=== PATIENT | male | born 1950 | race Caucasian/White ===

== ENCOUNTER 2019-03-23 08:52 | Outpatient (CLI) | payer OTHER, SELFPAY ==
[2019-03-23 10:53] LABS: Anion Gap 7.3 mmol/L (3-11); BUN 17 mg/dL (7-18); CO2 31.7 mmol/L (21.0-32.0); CREATININE 1.19 mg/dL (0.70-1.30); Calcium 9.3 mg/dL (8.5-10.1); Calculated LDL 129 mg/dL; Chloride 103 mmol/L (98-107); Cholesterol 208 mg/dL (50-200); Glucose 95 mg/dL (70-100); HDL Cholesterol 47 mg/dL (40-60); Potassium 4.1 mmol/L (3.5-5.1); Sodium 142 mmol/L (136-145); Triglyceride 163 mg/dL (30-150)
== END 2019-03-23 09:12 ==
PROVIDERS: PCP Family Medicine; Visit Provider Family Medicine
DX: I10 Essential (primary) hypertension (principal)
CPT/HCPCS: 36415; 80048; 80061; 83721

== ENCOUNTER 2019-03-24 11:56 | Outpatient (CLI) | payer OTHER, SELFPAY ==
--- NOTE | 2019-03-24 12:45 | MERGE_ITS ---
*[facility]* *[facility]* [address] [place] [address] Date of study: 03/24/2019 Transthoracic Echocardiography M-mode, complete 2D, complete spectral Doppler, and color Doppler *STUDY CONCLUSIONS* Impressions: Severe , reduced LV function. Summary: 1. Left ventricle: The cavity size was normal. Wall thickness was increased in a pattern of mild LVH. There was moderate focal basal hypertrophy. Systolic function was mildly to moderately reduced. The estimated ejection fraction was 40-45%. Severe hypokinesis of the mid-apicalanteroseptal myocardium. Severe hypokinesis of the basalinferior myocardium. 2. Aortic valve: Moderately calcified annulus. Trileaflet; severely thickened, severely calcified leaflets. Valve mobility was severely restricted. Transvalvular velocity was increased. There was severe stenosis. There was mild to moderate regurgitation. Peak velocity (S): 4.2m/sec. Mean gradient (S): 40.2mm Hg. Valve area (VTI): 0.7cm^2. Valve area (Vmax): 0.7cm^2. Valve area (Vmean): 0.7cm^2. 3. Aortic root: The aortic root was mildly dilated. 4. Ascending aorta: The ascending aorta was mildly dilated. 5. Right ventricle: The cavity size was normal. Wall thickness was normal. Systolic function was normal. 6. Pulmonary arteries: Pulmonary systolic pressure was at the upper limits of normal. PA peak pressure: 29mm Hg (S). Recommendations: Cardiothoracic Surgery Consult *PATIENT PRESENTATION* Height: 182.9cm (72in ) S/D Pressure: 142 / 92 Weight: 95.3kg (209.6lb ) BSA: 2.22m^2 Test start time: 12:45 PM. Test stop time: 01:36 PM. PERFORMING Unknown CONSULTING Domo Geronimo ORDERING Domo Geronimo REFERRING Domo Geronimo PERFORMING [facility] PATIENT EDUCATOR Koki Blackwell *PROCEDURE DATA* Procedure information: This study was interpreted by [facility]. Pertinent images and digital data are archived for permanent storage and are available for subsequent review. No prior study was available for comparison. Study status: Routine. Transthoracic echocardiography. M-mode, complete 2D, complete spectral Doppler, and color Doppler. A Transthoracic Echocardiogram was performed. Scanning was performed from the parasternal, apical, subcostal, and suprasternal notch acoustic windows. Images were obtained using an [employer] SC 2000 cardiac ultrasound machine. Image quality was fair. Study completion: The patient tolerated the procedure well. History: PMH: Murmur. *CARDIAC ANATOMY* Left ventricle: The cavity size was normal. Wall thickness was increased in a pattern of mild LVH. There was moderate focal basal hypertrophy. Systolic function was mildly to moderately reduced. The estimated ejection fraction was 40-45%. Regional wall motion abnormalities: Severe hypokinesis of the mid-apicalanteroseptal myocardium. Severe hypokinesis of the basalinferior myocardium. Aortic valve: Moderately calcified annulus. Trileaflet; severely thickened, severely calcified leaflets. Valve mobility was severely restricted. Doppler: Transvalvular velocity was increased. There was severe stenosis. There was mild to moderate regurgitation. VTI ratio of LVOT to aortic valve: 0.22. Valve area (VTI): 0.7cm^2. Indexed valve area (VTI): 0.3cm^2/m^2. Peak velocity ratio of LVOT to aortic valve: 0.19. Valve area (Vmax): 0.7cm^2. Indexed valve area (Vmax): 0.3cm^2/m^2. Mean velocity ratio of LVOT to aortic valve: 0.21. Valve area (Vmean): 0.7cm^2. Indexed valve area (Vmean): 0.3cm^2/m^2. Mean gradient (S): 40.2mm Hg. Peak gradient (S): 72.1mm Hg. Aorta: Aortic root: The aortic root was mildly dilated. Ascending aorta: The ascending aorta was mildly dilated. Mitral valve: Structurally normal valve. Mobility was not restricted. Doppler: Transvalvular velocity was within the normal range. There was no evidence for stenosis. There was no significant regurgitation. Valve area by pressure half-time: 4.3cm^2. Indexed valve area by pressure half-time: 1.9cm^2/m^2. Left atrium: The atrium was normal in size. Right ventricle: The cavity size was normal. Wall thickness was normal. Systolic function was normal. Pulmonic valve: Doppler: Transvalvular velocity was within the normal range. There was no evidence for stenosis. There was no significant regurgitation. Peak gradient (S): 4.4mm Hg. Tricuspid valve: Structurally normal valve. Doppler: Transvalvular velocity was within the normal range. There was no evidence for stenosis. There was no significant regurgitation. Pulmonary artery: Pulmonary systolic pressure was at the upper limits of normal. Right atrium: The atrium was normal in size. Pericardium: There was no pericardial effusion. Measurements Left ventricle Value Reference LV ID, ED, PLAX 5.5 cm 3.5 - 6.0 LV ID, ES, PLAX (H) 4.8 cm 2.1 - 4.0 LV PW thickness, ED, PLAX 1.3 cm LV end-diastolic volume, 1-p A2C 164 ml LV ejection fraction, 1-p A2C 40 % LV end-diastolic volume, 1-p A4C 125 ml LV ejection fraction, 1-p A4C 39 % LV e', lateral 0.044 m/sec LV E/e', lateral 10 LV e', medial 0.046 m/sec LV E/e', medial 9 LV e', average 0.045 m/sec LV E/e', average 10 Ventricular septum Value Reference IVS thickness, ED, PLAX 1.3 cm LVOT Value Reference LVOT ID, A-P 2.1 cm LVOT area 3.4 cm^2 LVOT peak velocity, S 0.82 m/sec LVOT mean velocity, S 0.62 m/sec LVOT VTI, S 21.5 cm LVOT peak gradient, S 2.7 mm Hg LVOT mean gradient, S 1.7 mm Hg Stroke volume (SV), LVOT DP 73 ml Stroke index (SV/bsa), LVOT DP 33 ml/m^2 Aortic valve Value Reference Aortic valve peak velocity, S 4.2 m/sec Aortic valve mean velocity, S 3 m/sec Aortic valve VTI, S 98.0 cm Aortic mean gradient, S 40.2 mm Hg Aortic peak gradient, S 72.1 mm Hg VTI ratio, LVOT/AV 0.22 Aortic valve area, VTI 0.7 cm^2 Velocity ratio, peak, LVOT/AV 0.19 Aortic valve area, peak velocity 0.7 cm^2 Velocity ratio, mean, LVOT/AV 0.21 Aortic valve area, mean velocity 0.7 cm^2 Aortic valve area/bsa, mean velocity 0.3 cm^2/m^2 Aortic regurg deceleration 128 cm/s^2 Aortic regurg pressure half-time 830 ms Aorta Value Reference Aortic root ID, ED 4.2 cm Ascending aorta ID, A-P, S 4.2 cm Left atrium Value Reference LA ID, A-P, ES 4.1 cm LA ID/bsa, A-P 1.9 cm/m^2 <=2.2 LA volume, ES, 2-p 60 ml LA volume/bsa, ES, 2-p 27 ml/m^2 LA/aortic root ratio 0.99 Mitral valve Value Reference Mitral E-wave peak velocity 0.44 m/sec Mitral A-wave peak velocity 0.85 m/sec Mitral deceleration time 178 ms 150 - 230 Mitral pressure half-time 52 ms Mitral E/A ratio, peak 0.51 Mitral valve area, PHT, DP 4.3 cm^2 Pulmonary arteries Value Reference PA pressure, S, DP 29 mm Hg <=30 Tricuspid valve Value Reference Tricuspid regurg peak velocity 2.4 m/sec Tricuspid peak RV-RA gradient 23.7 mm Hg Right atrium Value Reference RA area, ES, A4C (H) 21.2 cm^2 8.3 - 19.5 Systemic veins Value Reference Estimated CVP 10 mm Hg Right ventricle Value Reference RV pressure, S, DP (H) 34 mm Hg <=30 Pulmonic valve Value Reference Pulmonic peak gradient, S 4.4 mm Hg Legend: (L) and (H) nara values outside specified reference range. I have personally reviewed the images and have reviewed and edited the reported findings. Electronically signed by Le Brown 03/26/2019 13:17
== END 2019-03-24 12:16 ==
PROVIDERS: PCP Family Medicine; Visit Provider Family Medicine
DX: R01.1 Cardiac murmur, unspecified (principal); I10 Essential (primary) hypertension; I35.8 Other nonrheumatic aortic valve disorders; I35.2 Nonrheumatic aortic (valve) stenosis with insufficiency; I51.7 Cardiomegaly
CPT/HCPCS: 93306

== ENCOUNTER 2019-07-18 13:16 | Outpatient (RCR) | payer OTHER, SELFPAY | END 2019-08-05 23:59 | disposition home or self-care (01) | LOC: CR 13:16 | PROVIDERS: PCP Family Medicine; Visit Provider Family Medicine | DX: Z51.89 Encounter for other specified aftercare (principal) ==

== ENCOUNTER 2019-09-01 14:24 | Outpatient (RCR) | payer OTHER, SELFPAY | END 2019-09-05 23:59 | disposition home or self-care (01) | LOC: CR 14:24 | PROVIDERS: PCP Family Medicine; Visit Provider Family Medicine | DX: Z95.2 Presence of prosthetic heart valve (principal); Z51.89 Encounter for other specified aftercare | CPT/HCPCS: S9472 ==

== ENCOUNTER 2019-10-06 10:00 | Outpatient (RCR) | payer OTHER, SELFPAY | END 2019-10-06 23:59 | disposition home or self-care (01) | LOC: CR 10:00 | PROVIDERS: PCP Family Medicine; Visit Provider Family Medicine | DX: Z95.2 Presence of prosthetic heart valve (principal); Z51.89 Encounter for other specified aftercare | CPT/HCPCS: S9472 ==

== ENCOUNTER 2019-11-03 13:40 | Outpatient (RCR) | payer OTHER, SELFPAY | END 2019-11-04 23:59 | disposition home or self-care (01) | LOC: CR 13:40 | PROVIDERS: PCP Family Medicine; Visit Provider Family Medicine | DX: Z95.2 Presence of prosthetic heart valve (principal); Z51.89 Encounter for other specified aftercare | CPT/HCPCS: S9472 ==

== ENCOUNTER 2019-11-13 09:00 | Outpatient (RCR) | payer OTHER, SELFPAY | END 2019-12-05 23:59 | disposition home or self-care (01) | LOC: CR 09:00 | PROVIDERS: PCP Family Medicine; Visit Provider Family Medicine | DX: Z95.2 Presence of prosthetic heart valve (principal); Z51.89 Encounter for other specified aftercare | CPT/HCPCS: S9472 ==

== ENCOUNTER 2020-04-11 02:21 | Outpatient (CLI) | payer OTHER, SELFPAY ==
[2020-04-11 08:42] LABS: Anion Gap 8.6 mmol/L (3-11); BUN 31 mg/dL (7-18); CO2 30.4 mmol/L (21.0-32.0); CREATININE 1.44 mg/dL (0.70-1.30); Calcium 9.3 mg/dL (8.5-10.1); Chloride 101 mmol/L (98-107); Estimated GFR 48.93 (mL/min/1.73m2); Glucose 104 mg/dL (74-106); Sodium 140 mmol/L (136-145)
== END 2020-04-11 02:41 ==
PROVIDERS: PCP Family Medicine; Visit Provider Family Medicine
DX: I10 Essential (primary) hypertension (principal)
CPT/HCPCS: 36415; 80048

== ENCOUNTER 2020-08-11 12:59 | Emergency (ER) | payer OTHER, SELFPAY ==
[2020-08-11 13:03] VITALS: BP 149/91; PULSE 73; RESP 18; TEMP 36.1; O2SAT 98
--- NOTE | 2020-08-11 13:15 | DI.RAD_ITS ---
EXAM: XR FEMUR RT CLINICAL HISTORY: Fall, R/O fracture. TECHNIQUE: 2D digital imaging was performed. COMPARISON: No exams were available for comparison FINDINGS: Two views of the right femur reveal no evidence of acute fracture nor dislocation. No radiopaque for eign body. No osseous lesions. Bone density normal. No obvious knee joint effusion. IMPRESSION: No acute fracture evident. DATA REPOSITORY: RADIATION DOSE DELIVERED:
--- NOTE | 2020-08-11 13:18 | ED.GENADUL_ITS ---
Discharge Plan Disposition Patient Disposition: HOME Condition: Stable Discharge Details Clinical Impression: Hamstring strain Primary Care Provider: Choco Mishra ED Provider: Chen Kohli Home Meds and New Rx's Prescriptions: New lidocaine 5 % adhesive patch,medicated 1 patch topical DAILY Qty: 15 RF: 0 Continued hydrochlorothiazide 25 mg tablet 25 mg PO DAILY Qty: 90 RF: 4 lisinopril 2.5 mg tablet 2.5 mg PO DAILY Qty: 90 RF: 4 metoprolol tartrate 25 mg tablet 12.5 mg PO BID Qty: 180 RF: 4 amlodipine 10 mg tablet 10 mg PO DAILY Qty: 90 RF: 4 aspirin [Aspir-Ame] 325 mg tablet,delayed release (DR/EC) 325 mg PO DAILY RF: 0 multivitamin [Daily Vitamin] 1 EACH tablet 1 ea PO DAILY RF: 0 latanoprost 2.5 ML drops 1 drp Ophthalmic BID RF: 0 brimonidine 15 ML drops 1 drp Ophthalmic TID RF: 0 dorzolamide-timolol (PF) [Cosopt (PF)] 1 EACH dropperette 1 drp Ophthalmic TID RF: 0 Shingrix Adjuvant Component-PF Suspension 0.5 ml IM ONCE Qty: 0.5 RF: 0 Discharge Instructions Instructions: Muscle Strain (ED), Hamstring Injury (ED) Additional Instructions: Use lidocaine patch once every 12 hours. Use Ernesto wrap and crutches for comfort. Advance weight bearing as tolerated. Please take Tylenol or Ibuprofen with food every 4-6 hours as needed for pain and swelling. Alternate ice and heat. Follow up with primary care provider in 3-5 days. Return to ED sooner if any worsening or concerns. Increase oral fluids. Referrals: Choco Mishra [Primary Care Provider] - Discharge Data Discharge Date/Time-TO BE ENTERED AT DEPARTURE: 08/11/20 14:51 Medical Decision Making 69-year-old male presents to the ED via EMS with complaint of right posterior thigh pain status post fall on the ice just prior to arrival. Patient states that he was running out on their deck after his fell when he slipped on the ice and. He states he is unsure of how he landed. He denies any neck or back pain no loss of consciousness. He is complaining of right posterior thigh pain with weightbearing. No obvious deformity, no tenderness to the knee with pa lpation. No hip pain. He denies any chest pain abdominal pain nausea vomiting diarrhea. 1409: Protest performed by staff services manager, patient was unable to even put his feet on the floor. Increased pain with sitting on the edge of the bed. X-ray showed no fracture. Will order a lidocaine patch and reevaluate. EXAM: XR FEMUR RT CLINICAL HISTORY: Fall, R/O fracture. TECHNIQUE: 2D digital imaging was performed. COMPARISON: No exams were available for comparison FINDINGS: Two views of the right femur reveal no evidence of acute fracture nor dislocation. No radiopaque foreign body. No osseous lesions. Bone density normal. No obvious knee joint effusion. IMPRESSION: No acute fracture evident. 1429: After application of lidocaine patch and Ernesto wrap patient was able to stand up and walk a couple steps in the room. We will give him crutches to go home. At this time I suspect a muscle strain. There is no evidence of a tear no bulging of the thigh or deformity. X-rays at this time are negative. Discussed results with patient, verbalized understanding. Patient instructed to follow-up with PCP or return to the ED for any worsening. HPI General Mode of arrival: EMS . Date/Time Provider Initiated Documentation: 08/11/20 13:07 . Limitations to Documentation: no limitations . Information obtained by: patient . HPI Narrative: 69-year-old male presents to the ED via EMS with complaint of right posterior thigh pain status post fall on the ice just prior to arrival. Patient states that he was running out on their deck after his fell when he slipped on the ice and. He states he is unsure of how he landed. He denies any neck or back pain no loss of consciousness. He is complaining of right posterior thigh pain with weightbearing. No obvious deformity, no tenderness to the knee with palpation. No hip pain. He denies any chest pain abdominal pain nausea vomiting diarrhea. Related Data Home Medications Medication Instructions Recorded Confirmed multivitamin [Daily Vitamin] 1 ea PO DAILY 12/08/12 08/11/20 brimonidine 1 drp OPHTHALMIC TID drp 01/27/18 03/28/20 dorzolamide-timolol (PF) [Cosopt 1 drp OPHTHALMIC TID drp 01/27/18 08/11/20 (PF)] latanoprost 1 drp OPHTHALMIC BID drp 01/27/18 08/11/20 aspirin 325 mg tablet,delayed 325 mg PO DAILY 07/25/19 08/11/20 release amlodipine 10 mg tablet 10 mg PO DAILY #90 tab 03/28/20 08/11/20 hydrochlorothiazide 25 mg tablet 25 mg PO DAILY #90 tab 03/28/20 08/11/20 lisinopril 2.5 mg tablet 2.5 mg PO DAILY #90 tab 03/28/20 08/11/20 metoprolol tartrate 25 mg tablet 12.5 mg PO BID #180 tab 03/28/20 08/11/20 adjuvant AS01B (PF)vial 1 of 2 0.5 ml IM ONCE #0.5 ml 06/09/20 lidocaine 1 patch TOPICAL DAILY #15 ea 08/11/20 Previous Rx's Medication Instructions Recorded amlodipine 10 mg tablet 10 mg PO DAILY #90 tab 03/28/20 hydrochlorothiazide 25 mg tablet 25 mg PO DAILY #90 tab 03/28/20 lisinopril 2.5 mg tablet 2.5 mg PO DAILY #90 tab 03/28/20 metoprolol tartrate 25 mg tablet 12.5 mg PO BID #180 tab 03/28/20 adjuvant AS01B (PF)vial 1 of 2 0.5 ml IM ONCE #0.5 ml 06/09/20 lidocaine 1 patch TOPICAL DAILY #15 ea 08/11/20 Allergies Allergy/AdvReac Type Severity Reaction Status Date / Time venom-honey bee Allergy Severe Anaphylaxsi Verified 08/11/20 13:08 s General Stated Complaint: Orthopedic ALEX: 3 Review of Systems Narrative: Constitutional: Negative for weight loss, alert and oriented, well groomed, normal body habitus, appears comfortable. HEENT: Denies headaches, blurry vision, nasal discharge, sore throat, trouble swallowing. Chest: Denies chest pain, palpitations, irregular rhythm, hypertension. Respiratory: Denies Shortness of breath, cough, hemoptysis. GI: Denies abdominal pain, nausea, vomiting, diarrhea, constipation. : Denies dysuria, hematuria, flank pain, rectal bleeding. Neuro: Denies dizziness, blurry vision, weakness, syncope, headache or facial numbness. Hematologic: Denies easy bruising, intolerance to heat or cold, hair loss. [facility], [facility] Medical History Aortic stenosis Severe on echocardiogram. Assymptomatic Heart murmur (01/27/18) Grade III/ systolic ejetion murmur Surgical History EYE SURGERY (~04/2013) RETINAL DETACHMENT retinal detachment surgery 08/21 Family History Mother , 70 Essential hypertension Breast cancer Father , 56 No problems noted. Sister No problems noted. Social History Smoking/Tobacco Use Status: Never Smoking risk assessment performed?: Yes Alcohol Intake: never Drug use: Never Substance use type: does not use Counseling given: No Counseling provided: none Caregiver/Support person: No Household members: spouse Housing: house Communication Needs: None Do you need help understanding health information?: Never Pets and animals: Yes Pets and animals: dog(s) Sexually active: No Do you think of yourself as: straight/heterosexual Current gender identity: male and decline to answer What is your relationship status?: How often do you talk on the phone with friends or family?: once per week How often do you get together with friends or relatives?: never How often do you attend zoroastrian or moravian services?: decline to answer Do you belong to any clubs or organized social groups?: no Panel score (0-1 are the most socially isolated patients): 1 What type of physical activity do you participate in: walking Duration: 15-30 minutes/day Frequency: daily Jayashree/Episcopal: [employer] Special jayashree needs: No Seatbelt use: always Drive intox or ride w/intox coach tour driver: No Do you feel safe at home: Yes Do you feel safe in your relationship?: Yes Exam Narrative Exam Narrative: Constitutional: Alert and oriented x3. Appears stated age. Normal body habitus. Head: Normocephalic, no trauma. Eyes: Pupils PERRLA, Red reflex noted, EOM's intact. Eyelids symmetrical without lesions, discharge, or swelling. ENT: Bilateral TM's WNL, External ear normal to inspection, no mastoid TTP, swelling, or erythema, Nasal turbinates WNL, no nasal discharge. Normal dentition, Posterior pharynx WNL, no exudate. Chest: RRR, Normal S1, S2, distal pulses intact. Resp: Lungs clear to auscultation bilaterally, no wheezes, rales, or rhonchi. Musculoskeletal: Unable to assess gait. He has right posterior thigh tenderness weightbearing. No deformity to knee or hip no tenderness with palpation. Intact distal pedal pulses. Skin: No suspicious rashes or lesions. Capillary refill less than 2 sec. Neurologic: Cranial nerves II-XII intact. Alert and oriented x 3. DTR's intact. Hematologic/Lymphatic: No ecchymosis, no lymphadenopathy. Course Vital Signs Vital signs: Vital Signs Temperature 36.1 C L 08/11/20 13:03 Pulse 73 08/11/20 13:03 Respiratory Rate 18 08/11/20 13:03 Blood Pressure 149/91 H 08/11/20 13:03 Pulse Oximetry 98 08/11/20 13:03 Temperature 36.1 C L 08/11/20 13:03 Temperature Source Temporal Artery Scan 08/11/20 13:03 Pulse 73 08/11/20 13:03 Respiratory Rate 18 08/11/20 13:03 Respiratory Effort Non-Labored 08/11/20 13:12 Blood Pressure 149/91 H 08/11/20 13:03 Blood Pressure Position Sitting 08/11/20 13:03 Pulse Oximetry 98 08/11/20 13:03 Oxygen Delivery Method Room Air 08/11/20 13:03 Oxygen Flow Rate 0 08/11/20 13:03 Pain Level 2 08/11/20 13:12
[2020-08-11] MEDS: Acetaminophen 500 MG TAB PO (13:23)
[2020-08-11] MEDS: Lidocaine 5% Patch 1 PATCH TP (14:15)
[2020-08-11] MEDS: traMADol 50 MG TAB PO (14:40)
== END 2020-08-11 14:51 | disposition home or self-care (01) ==
PROVIDERS: Emergency Provider Registered Nurse Emergency; PCP Family Medicine
DX: S76.311A Strain of muscle, fascia and tendon of the posterior muscle group at thigh level, right thigh, initial encounter (principal); W00.0XXA Fall on same level due to ice and snow, initial encounter
CPT/HCPCS: 73552; 99283

== ENCOUNTER 2022-02-25 02:08 | Outpatient (CLI) | payer MEDICARE, SELFPAY ==
[2022-02-25 08:29] LABS: Hemoglobin A1C 5.9 % (<5.7)
[2022-02-25 08:32] LABS: CREATININE 1.5 mg/dL (0.70-1.30); Potassium 3.7 mmol/L (3.5-5.1)
== END 2022-02-25 02:09 | disposition home or self-care (01) ==
LOC: LBO 02:08
PROVIDERS: PCP Nurse Practitioner; Visit Provider Nurse Practitioner
DX: I10 Essential (primary) hypertension (principal); R73.09 Other abnormal glucose
CPT/HCPCS: 36415; 82565; 83036; 84132

== ENCOUNTER 2023-05-17 01:53 | Outpatient (CLI) | payer MEDICARE, SELFPAY ==
[2023-05-17 07:53] LABS: Hemoglobin A1C 5.8 % (<5.7)
[2023-05-17 07:57] LABS: CREATININE 1.6 mg/dL (0.70-1.30); Calculated LDL 156 mg/dL (<100); Cholesterol 230 mg/dL (<200); Estimated GFR 46.06 (mL/min/1.73m2); HDL Cholesterol 47 mg/dL (40-60); Potassium 3.9 mmol/L (3.5-5.1); Triglyceride 137 mg/dL (<150)
== END 2023-05-17 01:54 | disposition home or self-care (01) ==
LOC: LBO 01:53
PROVIDERS: PCP Nurse Practitioner Family; Visit Provider Nurse Practitioner Family
DX: I10 Essential (primary) hypertension (principal); R73.03 Prediabetes
CPT/HCPCS: 36415; 80061; 82565; 83036; 84132

== ENCOUNTER 2024-05-17 03:46 | Outpatient (CLI) | payer MEDICARE, SELFPAY ==
[2024-05-17 12:30] LABS: CREATININE 1.8 mg/dL (0.70-1.30); Calculated LDL 100 mg/dL (<100); Cholesterol 169 mg/dL (<200); Estimated GFR 39.75 (mL/min/1.73m2); HDL Cholesterol 52 mg/dL (40-60); Potassium 4.2 mmol/L (3.5-5.1); Triglyceride 85 mg/dL (<150)
[2024-05-17 12:46] LABS: Hemoglobin A1C 5.8 % (<5.7)
[2024-05-17 18:33] LABS: PSA, Screening 0.5 ng/mL (<=6.5)
== END 2024-05-17 03:47 | disposition home or self-care (01) ==
LOC: LOS 03:46
PROVIDERS: PCP Nurse Practitioner Family; Visit Provider Nurse Practitioner Family
DX: I10 Essential (primary) hypertension (principal); Z12.5 Encounter for screening for malignant neoplasm of prostate; Z13.1 Encounter for screening for diabetes mellitus; R73.03 Prediabetes; Z13.6 Encounter for screening for cardiovascular disorders
CPT/HCPCS: 36415; 80061; 84153; 82565; 83036; 84132

== ENCOUNTER 2025-06-08 00:21 | Outpatient (CLI) | payer MEDICARE, SELFPAY ==
[2025-06-08 14:26] LABS: Hemoglobin A1C 5.5 % (<5.7)
[2025-06-08 14:39] LABS: Anion Gap 9.4 mmol/L (3-11); BUN 44 mg/dL (7-18); CO2 29.6 mmol/L (21.0-32.0); Calcium 9.6 mg/dL (8.5-10.1); Calculated LDL 90 mg/dL (<100); Chloride 103 mmol/L (98-107); Cholesterol 161 mg/dL (<200); Estimated GFR 42.30 (mL/min/1.73m2); Glucose 99 mg/dL (74-106); HDL Cholesterol 48 mg/dL (>or=40); Potassium 4.0 mmol/L (3.5-5.1); Sodium 142 mmol/L (136-145); Triglyceride 116 mg/dL (<150)
== END 2025-06-08 00:22 | disposition home or self-care (01) ==
LOC: LOS 00:21
PROVIDERS: PCP Nurse Practitioner Family; Visit Provider Nurse Practitioner Family
DX: Z13.1 Encounter for screening for diabetes mellitus (principal); Z13.6 Encounter for screening for cardiovascular disorders
CPT/HCPCS: 36415; 80048; 80061; 83036